=== PATIENT | female | born 1980 | race Caucasian/White ===

== ENCOUNTER 2018-12-08 11:09 | Emergency (ER) | payer OTHER ==
[2018-12-08 11:18] VITALS: BP 129/84
--- NOTE | 2018-12-08 11:44 | ED Physician Documentation ---
History of Present Illness - Stated complaint Stated Complaint: RIGHT EAR PAIN, DRAINAGE - Chief complaint Chief Complaint: Heent - History obtained from History obtained from: Patient - History of Present Illness Timing: Yesterday Pain level max: 8 Pain level now: 5 - Additonal information Additional information: 38-year-old female presents to the emergency department stating that she had right ear pain, increasing in severity yesterday, then had drainage from the ear and pain decreased. Has had some congestion, no fevers. No coughing. No sore throat. Nothing makes it better or worse Review of Systems Constitutional: denies: Fever Throat: denies: Sore throat Respiratory: denies: Cough Skin: denies: Rash Musculoskeletal: denies: Neck pain, Back pain Neurologic: denies: Headache PD PAST MEDICAL HISTORY - Past Medical History Past Medical History: No - Past Surgical History Past Surgical History: No - Present Medications Home Medications: Ambulatory Orders Medication Instructions Recorded Confirmed Amoxicillin 875 mg PO BID #20 tablet 12/08/18 Nose [place] 12/08/18 - Allergies Allergies/Adverse Reactions: Allergies Allergy/AdvReac Type Severity Reaction Status Date / Time No Known Drug Allergies Allergy Verified 12/08/18 11:17 - Living Situation Living Arrangement: reports: At home - Social History Does the pt have substance abuse?: No - Family History Family history: reports: Non contributory PD ED PE NORMAL - Vitals Vital signs reviewed: Yes - General General: Alert and oriented X 3, No acute distress, Well developed/nourished - HEENT HEENT: Moist mucous membranes, Other (Left ear is normal. Right tympanic membrane is erythematous, small amount of purulence draining.) - Neck Neck: Supple, no meningeal sign - Derm Derm: Warm and dry, No rash - Neuro Neuro: Alert and oriented X 3 - Psych Psych: Normal mood, Normal affect Results - Vitals Vitals: Vital Signs - 24 hr 12/08/18 11:12 Temperature 36 C L Heart Rate 82 Respiratory 16 Rate Blood Pressure 129/84 H O2 Saturation 99 Oxygen O2 Source Room air PD MEDICAL DECISION MAKING - ED course Complexity details: considered differential, d/w patient ED course: Patient with a right acute otitis media as well as spontaneous rupture. Will place on antibiotics for home and follow-up with her doctor. She is well- appearing, nontoxic. Afebrile. Patient cautioned to be careful about getting water and other substances in the ear, Until the eardrum is healed. Patient counseled regarding signs and symptoms for which I believe and urgent re- evaluation would be necessary. Patient with good understanding of and agreement to plan and is comfortable going home at this time This document was made in part using voice recognition software. While efforts are made to proofread this document, sound alike and grammatical errors may occur. Departure - Departure Disposition: 01 Home, Self Care Clinical Impression: Right acute otitis media Condition: Good Instructions: ED Otitis Media Acute Adult Follow-Up: Zohreh Beltran PA-C [Primary Care Provider] - Within 1 week Prescriptions: Amoxicillin 875 mg PO BID #20 tablet Comments: Use the medications as prescribed. Return if you worsen. Follow-up with your doctor for further evaluation and care. Discharge Date/Time: 12/08/18 11:48
== END 2018-12-08 11:48 | disposition home or self-care (01) ==
LOC: ED 11:09
DX: H66.91 Otitis media, unspecified, right ear (principal); H72.91 Unspecified perforation of tympanic membrane, right ear
CPT/HCPCS: 99283

== ENCOUNTER 2018-12-12 12:59 | Outpatient (CLI) | payer OTHER ==
--- NOTE | 2018-12-12 15:54 | Ultrasound Report ---
Reason: HISTORY OF OVARIAN CYST Procedure Date: 12/12/2018 Accession Number: [id number] / [id number] Procedure: US - Pelvic w/Transvaginal CPT Code: FULL RESULT: EXAM: PELVIC ULTRASOUND. EXAM DATE: 12/12/2018 01:07 PM. CLINICAL HISTORY: History of ovarian cyst. COMPARISON: None. TECHNIQUE: Realtime transabdominal pelvic scan performed to identify the uterus and adnexa and as an overview of other pelvic structures, followed by transvaginal scan to provide greater detail of the uterus and adnexa, with static image documentation. FINDINGS: Uterus: 7.3 x 3.7 x 5.3 cm, volume 7.5 cc. Anteverted position. Normal overall size and echotexture. Masses: None. Endometrium: 3 mm. Normal. Cervix: Unremarkable. Right Ovary: 3.6 x 2.4 x 2.9 cm, volume 13.1 cc. Normal echotexture and blood flow. Left Ovary: 3.6 x 1.5 x 3.3 cm, volume 9.3 cc. Normal echotexture and blood flow. Free Fluid: None. Other: None. IMPRESSION: Normal appearance of the ovaries. [facility]
== END 2018-12-12 13:00 | disposition home or self-care (01) ==
LOC: DI 12:59
PROVIDERS: ATTEND Physician Assistant Medical
DX: Z87.42 Personal history of other diseases of the female genital tract (principal)
CPT/HCPCS: 76830; 76856